=== PATIENT | male | born 1990 | race African-American/Black ===

== ENCOUNTER 2024-02-22 10:03 | Emergency (ER) | payer OTHER ==
[2024-02-22 10:15] VITALS: BP 146/83; PULSE 74; RESP 18; TEMP 98; BMI 42.5
[2024-02-22] MEDS ORDERED: valACYclovir HCL 500 MG TABLET (FP) ONE (11:14)
[2024-02-22] MEDS ORDERED: predniSONE 20 MG TABLET (UD) ONE (11:14)
[2024-02-22] MEDS: valACYclovir HCL 500 MG TABLET (FP) PO ONE (11:19)
[2024-02-22] MEDS: predniSONE 20 MG TABLET (UD) PO ONE (11:19)
== END 2024-02-22 11:34 | disposition home or self-care (01) ==
LOC: JER 10:03
DX: R29.810 Facial weakness (principal)
CPT/HCPCS: 36415; 86618; 99283-25